=== PATIENT | female | born 1985 | race Caucasian/White ===

== ENCOUNTER 2017-12-22 12:45 | Emergency (ER) | payer MEDICARE, MEDICAID ==
[~2017-12-22] VITALS: Ht 170.2 cm; Wt 83.0 kg
[2017-12-22] MEDS ORDERED: XANAX1 MG PO (12:58)
[2017-12-22] MEDS ORDERED: OXYCONTIN10 M1 PO (12:58)
[2017-12-22] MEDS ORDERED: TRAZODONE 150150 M1 PO (12:58)
[2017-12-22] MEDS ORDERED: NEURONTIN 300300 M1 PO (12:59)
[2017-12-22] MEDS ORDERED: NORCO 5-325 TA1 EAC1 PO (14:58)
[2017-12-22 15:38] VITALS: BP 112/83
== END 2017-12-22 15:39 | disposition home or self-care (01) ==
LOC: M.ERS 12:45
DX: S82.291A Other fracture of shaft of right tibia, initial encounter for closed fracture (principal); F41.9 Anxiety disorder, unspecified; M79.7 Fibromyalgia; Z88.8 Allergy status to other drugs, medicaments and biological substances; W18.43XA Slipping, tripping and stumbling without falling due to stepping from one level to another, initial encounter; Y93.89 Activity, other specified; Y92.89 Other specified places as the place of occurrence of the external cause; Y99.8 Other external cause status

== ENCOUNTER 2021-08-15 18:24 | Emergency (ER) | payer MEDICAID ==
[~2021-08-15] VITALS: Ht 160 cm; Wt 49.9 kg
[~2021-08-15 18:24] MED LIST: NEURONTIN 300300 M1 PO; NORCO 5-325 TA1 EAC1 PO; OXYCONTIN10 M1 PO; TRAZODONE 150150 M1 PO; XANAX1 MG PO
[2021-08-15 22:25] LABS: ABSOLUTE EOSINOPHILS 0.1 thou/uL (0.0-0.7); ABSOLUTE LYMPHOCYTES 2.3 thou/uL (0.8-5.3); ABSOLUTE MONOCYTES 0.6 thou/uL (0.0-1.2); ABSOLUTE NEUTROPHILS 4.4 thou/uL (1.6-8.1); BASOPHILS 0.7 %; EOSINOPHILS 1.4 %; HEMATOCRIT 42.7 % (37.0-47.0); HEMOGLOBIN 14.5 gm/dL (12.0-15.0); LYMPHOCYTES 31.1 %; MCH 32.2 pg (26.0-34.0); MCHC 34.1 g/dL (28.0-37.0); MCV 94.5 fL (80.0-100.0); MONOCYTES 8.1 %; MPV 7.5 fl. (7.2-11.1); NUCLEATED RBCS 0 /100WBC; PLATELET COUNT* 276 thou/uL (150-400); POLYS 58.7 %; RBC 4.52 mil/uL (4.20-5.00); RDW-CV 12.2 % (10.5-14.5); WBC 7.4 thou/uL (4.0-11.0)
[2021-08-15 22:28] LABS: URINE BILIRUBIN NEGATIVE (Negative); URINE BLOOD 1+ (Negative); URINE CLARITY CLEAR; URINE COLOR YELLOW; URINE GLUCOSE-RANDOM NEGATIVE (Negative); URINE KETONES NEGATIVE (Negative); URINE LEUKOCYTES-REFLEX NEGATIVE (Negative); URINE NITRITE-REFLEX NEGATIVE (Negative); URINE PROTEIN NEGATIVE (Negative); URINE SPECIFIC GRAVITY >= 1.030 (1.005-1.030); URINE UROBILINOGEN 0.2 E.U./dl (0.2-1.0)
[2021-08-15 22:33] LABS: AMP/METHAMP POSITIVE (Negative); BARBITURATES Negative (Negative); BENZODIAZEPINES Negative (Negative); COCAINE Negative (Negative); METHADONE Negative (Negative); OPIATES Negative (Negative); PCP Negative (Negative); THC Negative (Negative)
[2021-08-15 22:34] LABS: CALCIUM 8.7 mg/dL (8.5-10.1); CREATININE 0.8 mg/dL (0.6-1.3); POTASSIUM 3.8 mmol/L (3.5-5.1)
[2021-08-15 22:38] LABS: ALBUMIN 4.1 g/dL (3.4-5.0); TOTAL BILIRUBIN 0.2 mg/dL (<0.1-1.0); TOTAL PROTEIN 7.6 g/dL (6.4-8.2)
[2021-08-15 22:56] LABS: SQUAMOUS 4-10 Moderate /LPF (0-3)
[2021-08-15 22:58] LABS: BACTERIA-REFLEX 1-9 Few /HPF (None Seen); CASTS None Seen /LPF (None Seen); URINE WBC-REFLEX 0-5 Rare /HPF (0-5)
[2021-08-15 22:59] LABS: CRYSTALS None Seen /LPF (None Seen); URINE RBC 3-10 Few /HPF (0-2)
[2021-08-15 23:33] VITALS: BP 113/81
== END 2021-08-15 23:33 | disposition home or self-care (01) ==
LOC: M.ERS 18:24
PROVIDERS: Nurse Practitioner Family; Physician Assistant
DX: R50.9 Fever, unspecified (principal); F15.10 Other stimulant abuse, uncomplicated; R41.0 Disorientation, unspecified; M25.572 Pain in left ankle and joints of left foot; R42 Dizziness and giddiness; F41.9 Anxiety disorder, unspecified; M79.7 Fibromyalgia; Z88.8 Allergy status to other drugs, medicaments and biological substances